=== PATIENT | female | born 1955 | race Caucasian/White ===

== ENCOUNTER → 2018-01-08 12:49 | Outpatient (CLI) | payer OTHER, SELFPAY ==
[2018-01-08 11:27] VITALS: BP 115/70; BMI 23.8
== END ==
PROVIDERS: Family Provider Family Medicine; PCP Family Medicine; Visit Provider Nurse Practitioner Women's Health
DX: N76.0 Acute vaginitis (principal)
CPT/HCPCS: 87070; 87205

== ENCOUNTER → 2018-01-10 15:12 | Outpatient (CLI) | payer OTHER, SELFPAY ==
[2018-01-08 11:27] VITALS: BP 115/70; BMI 23.8
--- NOTE | 2018-01-10 15:14 | US_ITS ---
STUDY: ULTRASOUND OF THE FEMALE PELVIS - COMPLETE REASON FOR EXAM: Female, 62 years old. Pelvic pain LMP: TECHNIQUE: Transabdominal and transvaginal TECHNICAL QUALITY: Adequate. COMPARISON: None. FINDINGS: The uterus is anteverted and is in a midline position. The uterus measures 5.6 x 3.5 x 2.5 cm. Normal uterine cervix. The endometrium measures 1.1 mm in thickness, and is hyperechoic. There is no demonstrated endometrial mass. There is no demonstrated myometrial mass. I.U.D. - The patient does not have an I.U.D. Ovaries are not visualized. There is no adnexal mass There is no fluid in the cul-de-sac. . US/Transvaginal Non- IMPRESSION: Nonvisualization of the ovaries. Otherwise unremarkable pelvic sonogram If concern for adnexal mass MRI recommended for further evaluation Electronically Signed: South Coreas MD at 19:54 EST , Service support ,
--- NOTE | 2018-01-10 15:14 | US_ITS ---
STUDY: ULTRASOUND OF THE FEMALE PELVIS - COMPLETE REASON FOR EXAM: Female, 62 years old. Pelvic pain LMP: TECHNIQUE: Transabdominal and transvaginal TECHNICAL QUALITY: Adequate. COMPARISON: None. FINDINGS: The uterus is anteverted and is in a midline position. The uterus measures 5.6 x 3.5 x 2.5 cm. Normal uterine cervix. The endometrium measures 1.1 mm in thickness, and is hyperechoic. There is no demonstrated endometrial mass. There is no demonstrated myometrial mass. I.U.D. - The patient does not have an I.U.D. Ovaries are not visualized. There is no adnexal mass There is no fluid in the cul-de-sac. . US/Pelvic (Non ) IMPRESSION: Nonvisualization of the ovaries. Otherwise unremarkable pelvic sonogram If concern for adnexal mass MRI recommended for further evaluation Electronically Signed: South Coreas MD at 19:54 EST , Service support ,
== END ==
PROVIDERS: Family Provider Family Medicine; PCP Family Medicine; Visit Provider Nurse Practitioner Women's Health
DX: R10.2 Pelvic and perineal pain (principal)
CPT/HCPCS: 76830; 76856

== ENCOUNTER 2018-04-02 03:33 | Emergency (ER) | payer OTHER, SELFPAY ==
[2018-04-02 03:34] VITALS: BP 124/64; PULSE 89; RESP 18; TEMP 36.5; O2SAT 98; BMI 23.6
[2018-04-02] MEDS: Ondansetron 4 MG/2 ML Vial IV (03:57)
[2018-04-02] MEDS: Dicyclomine 20 MG/2 ML Vial IM (03:59)
[2018-04-02] MEDS: 0.9% Normal Saline 1,000 ML 1000 ML IV (03:59)
[2018-04-02 04:03] LABS: Absolute Lymphocyte Count 0.31 X10^3/ul (0.83-4.51); Absolute Neutrophil Count 5.4 X10^3/uL (2.0-7.7); Eosinophil# 0.03 X10^3/uL; Eosinophils% 0.5 % (0-5); Hematocrit 44.6 % (37-47); Hemoglobin 14.9 g/dl (12.0-15.0); Lymphocyte # 0.31 X10^3/ul (4.0); Lymphocyte % 5.3 % (19-41); Mean Corp Hgb Conc 33.4 g/gl (32-36); Mean Corpuscular Hgb 31.5 pg (27.0-32.0); Mean Corpuscular Volume 94.3 fL (81-99); Mean Platelet Vol. 11.1 fl (6.2-12.0); Monocyte# 0.12 X10^3/uL; Monocyte% 2.1 % (0-10); Neutrophil # 5.38 X10^3/uL (2.7-7.7); Neutrophil % 91.9 % (47-70); Platelet Count 160 K/mm3 (150-450); RBC Distribution Width CV 12.7 % (11.6-14.6); RBC Distribution Width SD 43.5 fl (35.1-43.9); Red Blood Count 4.73 M/mm3 (4.2-5.4); White Blood Count 5.9 K/mm3 (4.4-11.0)
[2018-04-02 04:07] LABS: Differential Indicated SCAN CRITERIA MET; POSITIVE COUNT NO; POSITIVE DIFFERENTIAL YES; POSITIVE MORPHOLOGY NO
[2018-04-02 04:28] LABS: ALB/GLOB Ratio 1.1 RATIO (0.9-2.4); AST(SGOT) 25 U/L (15-37); Alanine Aminotransfer ALT/SGPT 18 U/L (13-56); Alkaline Phosphatase 74 U/L (45-117); Anion Gap 7 (5-15); BUN 21 mg/dL (7-18); BUN/Creat Ratio 28.3 RATIO (10-20); Calcium,Total 8.9 mg/dL (8.5-10.1); Chloride 108 mmol/L (98-107); Creatinine, Serum 0.74 mg/dL (0.55-1.02); EST Glomerular Filtration Rate 84 mL/min (>60); Est Glom Filt Rate - Afr Amer 102 mL/min (>60); Estimated Creatinine Clearance 73.79 ml/min; Globulin 3.6 g/dL (2.2-4.2); Glucose 125 mg/dL (74-106); Lipase 103 U/L (73-393); Potassium 3.8 mmol/L (3.5-5.1); Protein, Total 7.6 g/dL (6.4-8.2); Sodium Level 144 mmol/L (136-145)
--- NOTE | 2018-04-02 04:40 | ED.VISSUMM ---
- ER Visit Summary Date of Service: 04/02/18 Chief Complaint: Abdominal pain nausea and diarrhea History of Present Illness: The patient is a 62 F presenting for evaluation secondary to abdominal pain nausea and diarrhea. Patient states that she went out to dinner this evening with some friends. She had dinner at about 7:00, upon arriving home at 745 8:00 she had a sudden onset of profuse watery diarrhea, 10 episodes or more, crampy waxing and waning abdominal pain, nausea with no vomiting. Patient denies any presence of fevers. She denies any recent travel, antibiotic use, or admissions to the hospital. She states that her diarrhea is loose and watery nonbloody and nonbilious. Patient states that she had a salad with cheese, telling dressing, pizza with pepperoni and sausage, and ice cream for dinner. She states that she is unsure if anyone else in the dinner alliance party is having any similar symptoms. Physical Examination: Vital signs are within normal limits, patient is afebrile. General: Patient is well-nourished well-developed and in no acute distress. Head: Normocephalic, atraumatic Eyes: Pupils equal round and reactive bilaterally, extra occular motion intact bialterally no evidence of scleral icterus ENT: Moist mucous membranes Neck: Supple, no lymphadenopathy, no JVD, no meningismus CVS: Heart regular rate and rhythm, no murmurs, rubs or gallops, radial pulses 2+ bilaterally Resp: Respirations nondistressed, lung sounds clear bilaterally Abdomen: Soft, gastric tenderness to palpation no guarding no rebound, nondistended, no palpable masses, normal bowel sounds Back: Nontender Extremities: Nontender, atraumatic, active full range of motion, no peripheral edema Skin: warm, no rashes, no petechia Neuro: Alert and oriented x 4, CN 2-12 intact, no lateralizing neurological defecits Psyc: Normal affect Test Results: CBC is within normal limits except for a left shift, chemistry unremarkable except for chloride of 108, liver panel and lipase unremarkable. Emergency Department Course and Treatment: Patient presented with an acute onset of crampy abdominal pain and profuse diarrhea. She was given Bentyl a GI cocktail Zofran and a liter normal saline. Patient's workup does show evidence of a left shift, likely reactive to the patient's illness. At this point she does not have evidence that this is hepatitis A, this could be a episode of acute enteritis versus food borne illness. I do not believe that empiric antibiotics are indicated at this point. Patient will be sent home with a course of Bentyl and Zofran for symptomatic treatment. She was given signs and symptoms for which to return. She voiced understanding and the patient was discharged. Disposition: Discharge Impression: 1. Acute enteritis This note was generated with [employer] dictation software. It may contain incorrect words, spelling, and punctuation that were not noted in review of the chart prior to signing ED Disposition - Plan for ED Patient: Disposition: Home or Assisted Living Chief Complaint: Abd Pain Diagnosis: Enteritis Instructions: ED Gastroenteritis Non Infec Prescriptions: Ondansetron [Zofran Odt] 4 mg PO Q8H PRN PRN #10 tab PRN Reason: Nausea Dicyclomine HCl [Bentyl] 20 mg PO TIDAC #20 cap Referrals: Cristal Potts MD [Primary Care Provider] - 3-5 Days if not improving
--- NOTE | 2018-04-02 04:44 | ED.DCSUM_ITS ---
- ER Visit Summary Date of Service: 04/02/18 Chief Complaint: Abdominal pain nausea and diarrhea History of Present Illness: The patient is a 62 F presenting for evaluation secondary to abdominal pain nausea and diarrhea. Patient states that she went out to dinner this evening with some friends. She had dinner at about 7:00, upon arriving home at 745 8:00 she had a sudden onset of profuse watery diarrhea , 10 episodes or more, crampy waxing and waning abdominal pain, nausea with no vomiting. Patient denies any presence of fevers. She denies any recent travel , antibiotic use, or admissions to the hospital. She states that her diarrhea is loose and watery nonbloody and nonbilious. Patient states that she had a salad with cheese, telling dressing, pizza with pepperoni and sausage, and ice cream for dinner. She states that she is unsure if anyone else in the dinner alliance party is having any similar symptoms. Physical Examination: Vital signs are within normal limits, patient is afebrile. General: Patient is well-nourished well-developed and in no acute distress. Head: Normocephalic, atraumatic Eyes: Pupils equal round and reactive bilaterally, extra occular motion intact bialterally no evidence of scleral icterus ENT: Moist mucous membranes Neck: Supple, no lymphadenopathy, no JVD, no meningismus CVS: Heart regular rate and rhythm, no murmurs, rubs or gallops, radial pulses 2 + bilaterally Resp: Respirations nondistressed, lung sounds clear bilaterally Abdomen: Soft, gastric tenderness to palpation no guarding no rebound, nondistended, no palpable masses, normal bowel sounds Back: Nontender Extremities: Nontender, atraumatic, active full range of motion, no peripheral edema Skin: warm, no rashes, no petechia Neuro: Alert and oriented x 4, CN 2-12 intact, no lateralizing neurological defecits Psyc: Normal affect Test Results: CBC is within normal limits except for a left shift, chemistry unremarkable except for chloride of 108, liver panel and lipase unremarkable. Emergency Department Course and Treatment: Patient presented with an acute onset of crampy abdominal pain and profuse diarrhea. She was given Bentyl a GI cocktail Zofran and a liter normal saline. Patient's workup does show evidence of a left shift, likely reactive to the patient's illness. At this point she does not have evidence that this is hepatitis A, this could be a episode of acute enteritis versus food borne illness. I do not believe that empiric antibiotics are indicated at this point. Patient will be sent home with a course of Bentyl and Zofran for symptomatic treatment. She was given signs and symptoms for which to return. She voiced understanding and the patient was discharged. Disposition: Discharge Impression: 1. Acute enteritis This note was generated with [employer] dictation software. It may contain incorrect words, spelling, and punctuation that were not noted in review of the chart prior to signing ED Disposition - Plan for ED Patient: Disposition: Home or Assisted Living Chief Complaint: Abd Pain Diagnosis: Enteritis Instructions: ED Gastroenteritis Non Infec Prescriptions: Ondansetron [Zofran Odt] 4 mg PO Q8H PRN PRN #10 tab PRN Reason: Nausea Dicyclomine HCl [Bentyl] 20 mg PO TIDAC #20 cap Referrals: Cristal Potts MD [Primary Care Provider] - 3-5 Days if not improving
[2018-04-02 04:58] VITALS: BP 114/69; PULSE 82; RESP 16; O2SAT 99
[2018-04-02 05:02] LABS: Differential Comment SCANNED
== END 2018-04-02 04:59 | disposition home or self-care (01) ==
PROVIDERS: Emergency Provider Emergency Medicine; Family Provider Internal Medicine; PCP Internal Medicine
DX: K52.9 Noninfective gastroenteritis and colitis, unspecified (principal); Z79.82 Long term (current) use of aspirin; Z79.899 Other long term (current) drug therapy
CPT/HCPCS: 80053; 83690; 85025; 96361; 96372; 96374; 99283; J7030; A4216; J2405

== ENCOUNTER → 2018-05-01 08:53 | Outpatient (CLI) | payer OTHER, SELFPAY ==
--- NOTE | 2018-05-01 08:55 | BI_ITS ---
MAMMOGRAPHY - BILATERAL SCREENING REASON FOR EXAM: Female, 62 years old. Routine annual screening examination. PERTINENT HISTORY: Non-contributory. TECHNIQUE: Digital bilateral breast katarina (3D mammographic acquisition) in the CC and MLO projections. 2-D mediolateral oblique (MLO) and craniocaudad (CC) views of both breasts were obtained. CAD: Full Field Digital Mammography with Computer Added Detection was performed. COMPARISON: Comparison is made with prior examination dated April 30, 2017 and April 25, 2016. FINDINGS: Breast Composition: The breasts are heterogeneously dense, which may obscure small masses. There are no dominant masses or suspicious calcifications. No other significant abnormalities are identified. There has been no significant change since the prior study. BI/SCREENING MAMM (CAD), BILAT IMPRESSION: Stable bilateral screening mammogram. Yearly follow-up mammogram recommended. (A) ASSESSMENT CATEGORY: BIRADS Category 1: Negative. A letter regarding these results will be sent to the patient by the facility within 30 days. Approximately 10% of breast cancers are not detected by mammography. A normal mammogram should not delay biopsy of a clinically suspicious abnormality. [id number] Electronically Signed: Carson Garcia MD at 10:26 EDT Tel [phone], Service support ,
== END ==
PROVIDERS: Family Provider Internal Medicine; PCP Internal Medicine; Visit Provider Internal Medicine
DX: Z12.31 Encounter for screening mammogram for malignant neoplasm of breast (principal)
CPT/HCPCS: 77063; 77067

== ENCOUNTER 2018-05-25 11:00 | Emergency (ER) | payer OTHER, SELFPAY ==
[2018-05-25 11:00] VITALS: BP 147/82; PULSE 75; RESP 17; TEMP 36.8; O2SAT 95; BMI 23.3
--- NOTE | 2018-05-25 11:42 | ED.VISSUMM ---
- ER Visit Summary Date of Service: 05/25/18 Chief Complaint: [] Left shoulder pain for a few months diagnosed with calcific tendinitis History of Present Illness: The patient is a 62 F [] has that diagnosis based on x-ray findings evaluation by her physicians she basically indicates her shoulder is quite sore with any type of range of motion she is undergoing physical therapy and reports that it actually made things worse so they modified her physical therapy today she woke up again with difficulty moving the shoulder to any direction she has had no trauma no fever no cough no numbness weakness or paresthesias, she has no other complaints she assures me this is consistent with what she has been going through for months and nothing new she had no pain relief at home and she presents for that main issue Physical Examination: [] she is resting in the bed as long as she does not move the shoulder she has no complaints her vital signs are within normal range she clearly has discomfort with any type of range of motion of the left shoulder her head neck chest exam unremarkable lower extremity right upper extremity unremarkable left upper extremity she prefers to keep the shoulder ADD adducted she has almost no pain with palpation of the shoulder however any type of range of motion causes her to have pain in her range of motion to all modalities is restricted the arm forearm elbow wrist and hand are unremarkable good sensation cap refill normal hand function, there is no bruising or warmth to the shoulder or signs of trauma or infection Test Results: [] Emergency Department Course and Treatment: [] Long conversation with her family given all the above she agrees that there is no real indication for x-ray or other diagnostics management she simply needs pain relief, she is provided with morphine and Toradol IM she is discharged on Naprosyn Zofran [place] No. 10 to use as needed rescue medicine she is referred to orthopedics and she will also follow-up with her physicians and other care providers Treatment Plan: [] Disposition: [] Home stable Impression: [] Left shoulder pain history of calcific tendinitis This note was generated with [employer] dictation software. It may contain incorrect words, spelling, and punctuation that were not noted in review of the chart prior to signing ED Disposition - Plan for ED Patient: Chief Complaint: Upper Extremity Injury Referrals: Cristal Potts MD [Primary Care Provider] -
--- NOTE | 2018-05-25 11:45 | ED.DEP ---
ED Disposition - Plan for ED Patient: Chief Complaint: Upper Extremity Injury Instructions: ED Tendinitis Rotator Cuff Prescriptions: Hydrocodone Bitart/Apap 5-325 [[place] 5MG-325MG] 1 tab PO Q4H PRN PRN 2 Days #10 tab PRN Reason: Pain Ondansetron [Zofran Odt] 4 mg PO Q8H PRN PRN #10 tab PRN Reason: Nausea Naproxen [Naprosyn] 500 mg PO BID PRN #20 tab Referrals: Cristal Potts MD [Primary Care Provider] - Benjie Lerma DO [STAFF PHYSICIAN] -
[2018-05-25] MEDS: Ondansetron ODT 4 MG Tablet PO (11:55)
[2018-05-25] MEDS: Ketorolac 60 MG/2 ML Vial IM (11:55)
[2018-05-25] MEDS: morphine 8 MG/ML Syringe SC (11:55)
[2018-05-25 12:00] VITALS: BP 139/79; PULSE 69; RESP 18; O2SAT 96
== END 2018-05-25 12:04 | disposition home or self-care (01) ==
PROVIDERS: Emergency Provider Emergency Medicine; Family Provider Internal Medicine; PCP Internal Medicine
DX: M75.32 Calcific tendinitis of left shoulder (principal); Z79.82 Long term (current) use of aspirin
CPT/HCPCS: 96372; 99283

== ENCOUNTER → 2019-05-08 13:40 | Outpatient (CLI) | payer OTHER, SELFPAY ==
[2019-02-02 09:45] VITALS: BMI 23.8
--- NOTE | 2019-05-08 13:53 | BI_ITS ---
MAMMOGRAPHY - BILATERAL SCREENING REASON FOR EXAM: Female, 63 years old. Routine annual screening examination. PERTINENT HISTORY: Non-contributory. TECHNIQUE: Digital bilateral breast dat (3D mammographic acquisition) in the CC and MLO projections. 2-D mediolateral oblique (MLO) and craniocaudad (CC) views of both breasts were obtained. CAD: Full Field Digital Mammography with Computer Added Detection was performed. COMPARISON: Comparison is made with prior study dated May 01, 2018 and April 30, 2017. FINDINGS: Breast Composition: The breasts are heterogeneously dense, which may obscure small masses. There are no dominant masses or suspicious calcifications. No other significant abnormalities are identified. There has been no significant change since the prior study. BI/SCREEN MAMM (CAD) W/DAT BILAT IMPRESSION: Stable bilateral screening mammogram. Yearly follow-up mammogram recommended. (A) ASSESSMENT CATEGORY: BIRADS Category 1: Negative. A letter regarding these results will be sent to the patient by the facility within 30 days. Approximately 10% of breast cancers are not detected by mammography. A normal mammogram should not delay biopsy of a clinically suspicious abnormality. [id number] Electronically Signed: Carson Garcia, at 15:15 EDT , Service support ,
== END ==
PROVIDERS: Family Provider Internal Medicine; PCP Internal Medicine; Referring Provider Nurse Practitioner Women's Health; Visit Provider Nurse Practitioner Women's Health
DX: Z12.31 Encounter for screening mammogram for malignant neoplasm of breast (principal)
CPT/HCPCS: 77063; 77067

== ENCOUNTER → 2019-05-08 15:43 | Outpatient (CLI) | payer OTHER, SELFPAY ==
[2019-02-02 09:45] VITALS: BMI 23.8
== END ==
PROVIDERS: Family Provider Internal Medicine; PCP Internal Medicine; Referring Provider Otolaryngology; Visit Provider Otolaryngology
DX: J02.9 Acute pharyngitis, unspecified (principal)
CPT/HCPCS: 87070

== ENCOUNTER → 2019-11-03 14:07 | Outpatient (CLI) | payer OTHER, SELFPAY ==
[2019-11-03 09:16] VITALS: BMI 23.8
== END ==
PROVIDERS: Family Provider Internal Medicine; PCP Internal Medicine; Visit Provider Nurse Practitioner Women's Health
DX: M54.5 Low back pain (principal); N89.8 Other specified noninflammatory disorders of vagina
CPT/HCPCS: 87070; 87086; 87205

== ENCOUNTER 2019-12-27 12:46 | Emergency (ER) | payer OTHER, SELFPAY ==
[2019-11-03 09:16] VITALS: BMI 23.8
[2019-12-27 12:47] VITALS: BP 149/90; PULSE 61; RESP 16; TEMP 36.4; O2SAT 100; BMI 23.8
--- NOTE | 2019-12-27 13:02 | RAD_ITS ---
STUDY: X-RAY - LEFT WRIST REASON FOR EXAM: Female, 64 years old. PAIN OVER NAVICULAR AREA AFTER LOUD CRACK TECHNIQUE: 4 view(s) of the wrist were obtained. COMPARISON: None. FINDINGS: Normal visualized distal radius and ulna. Normal radiocarpal articulation. Normal distal radioulnar articulation. Normal carpal bones. Normal carpal articulations. Normal carpometacarpal articulation of the thumb. Normal second through fifth carpometacarpal articulations. Normal visualized metacarpal bones. The soft tissue structures are unremarkable. RAD/Wrist min 3 Views IMPRESSION: Normal x-ray examination of the wrist. Electronically Signed: Denzel Rodriguez DO at 14:12 EST Tel , Service support ,
--- NOTE | 2019-12-27 13:02 | ED.DCSUM_ITS ---
History of Present Illness Chief Complaint: Upper Extremity Injury Detail of Chief Complaint: Left wrist pain Informant: Patient Onset: Days Context: Sudden Onset Current Severity: Mild Maximum Severity: Moderate Narrative: Patient presents with pain to her left wrist that started 2 days ago. She states when she went to bed Ag night she used her left hand to pull her comforter and sheets back, feeling a sharp pop at the base of her left thumb. Patient is had continued pain to that area, worse with certain movements. This morning when she woke up she states her fingers were cold. After making a fist a few times temperature returned to normal. She denies having numbness in her hands. She does report some intermittent numbness in her forearm. She is rig ht-hand dominant. Past Medical History - Allergies and Home Meds Allergies/Adverse Reactions: Allergies Penicillins Allergy (Verified 12/27/19 12:47) Unknown Primary Care Physician: Cristal Potts MD [Primary Care Provider] - Past Medical History: None Lives: Spouse/ Significant Other Smoking Status: Never smoker Review of Systems General: Denies: Chills, Fever Eyes: Denies: Visual changes - bilaterally ENT: Denies: Bilateral ear pain Cardiovascular: Denies: Chest pain Respiratory: Denies: Dyspnea, Cough Gastrointestinal: Denies: Abdominal pain, Nausea, Vomiting, Diarrhea Genitourinary: Denies: Dysuria Musculoskeletal: Reports: Extremity Pain. Denies: Myalgias, Arthralgias, Swelling Skin: Denies: Rash Neurological: Reports: Parasthesia Allergy: Denies: Uticaria Physical Exam Vital Signs/Narrative: Vital Signs Temp Pulse Resp BP Pulse Ox 12/27/19 12:47 97.6 F L 61 16 149/90 H 100 Inital Vital Signs reviewed: Yes General: Well nourished, Well developed Head: Normocephalic ENT: Moist mucous membranes Neck: Supple Cardiovascular: Regular rate, Regular rhythm Respiratory: No distress, CTA bilaterally Abdomen: Soft, Nontender Extremities: - - Mild tenderness at the base of the left thumb. Pain is worse with abduction of her left thumb. Normal cap refill distally and sensation. Skin: Normal color Neurological: Alert, Oriented x3, Normal Strength, Normal Sensation Diagnostic/Tx/Re-eval Left wrist x-rays per my review reveal no acute fracture. - Medical Decision Making Patient be placed in a thumb spica splint. She will use anti-inflammatories at home for pain. She will follow primary care physician if not improving in the next 5 to 7 days. ED Disposition - Plan for ED Patient: Disposition: Home or Assisted Living Diagnosis: Left wrist sprain Instructions: Wrist Sprain Referrals: Cristal Potts MD [Primary Care Provider] - 1 Week if not improving
== END 2019-12-27 13:40 | disposition home or self-care (01) ==
PROVIDERS: Emergency Provider Emergency Medicine; PCP Internal Medicine
DX: S63.502A Unspecified sprain of left wrist, initial encounter (principal); X50.9XXA Other and unspecified overexertion or strenuous movements or postures, initial encounter; Y93.9 Activity, unspecified; Y92.9 Unspecified place or not applicable; Y99.9 Unspecified external cause status; Z79.82 Long term (current) use of aspirin; Z79.899 Other long term (current) drug therapy; Z88.0 Allergy status to penicillin
CPT/HCPCS: 73110; 99283

== ENCOUNTER 2020-04-17 08:34 | Emergency (ER) | payer OTHER, SELFPAY ==
[2020-04-17 08:34] VITALS: BP 167/85; PULSE 59; RESP 18; TEMP 36.4; O2SAT 100; BMI 25.7
--- NOTE | 2020-04-17 09:17 | ED.VISSUMM ---
- ER Visit Summary Date of Service: 04/17/20 Chief Complaint: Dizziness History of Present Illness: The patient is a 64 F who presents with dizziness that began this morning. Patient states she got up to go to the bathroom at 0600 this morning and felt like the room was spinning. Patient states she was able to ambulate to the bathroom using a cane. Patient states nothing makes the dizziness better. Patient states this is worse when she sat up. Patient does admit to some tinnitus. Patient states it feels like there is a buzzing in her ears. Patient states that she feels like her brain is spinning. Patient states she has a history of vertigo. Patient states she tried to take Dramamine this morning with no improvement. Patient admits to some nausea and vomiting today. Physical Examination: Vital signs are stable. Patient is afebrile. Patient is in no acute distress. Oral mucosa is pink and moist. Neck is supple. Trachea is midline. There is no JVD noted. Heart was regular rate and rhythm. Lungs are clear and equal bilaterally. Abdomen is soft. Bowel sounds are normal. There is no tenderness. There is no rebound or guarding noted. Skin is warm dry. Cranial nerves II through XII are intact. There are no focal motor or sensory deficits noted. Extremities are intact. There is no calf tenderness or edema. Test Results: CBC and comprehensive metabolic profile were obtained and were within normal limits. Emergency Department Course and Treatment: Patient was given a dose of oral Valium here. Patient is feeling better after this. Patient was given a prescription for Valium. Patient was instructed to follow-up with her primary care physician in 5 to 7 days. Patient understood and was agreeable with the plan. All questions were answered. Disposition: Discharge home Impression: Vertigo This note was generated with [employer] dictation software. It may contain incorrect words, spelling, and punctuation that were not noted in review of the chart prior to signing ED Disposition - Plan for ED Patient: Disposition: Home or Assisted Living Diagnosis: Vertigo Instructions: ED Vertigo Unspecified Prescriptions: Diazepam [Valium] 2 mg PO TID PRN PRN #10 tab PRN Reason: Vertigo Prescription Printed Referrals: Cristal Potts MD [Primary Care Provider] - 3-5 Days
[2020-04-17] MEDS: diazePAM 5 MG Tablet 2.5 MG PO (09:24)
[2020-04-17] MEDS: 0.9% Normal Saline 1,000 ML 1000 ML IV (09:24)
[2020-04-17 09:30] LABS: Absolute Lymphocyte Count 0.72 X10^3/uL (0.83-4.51); Absolute Neutrophil Count 4.8 X10^3/uL (2.0-7.7); Basophil# 0.02 X10^3/uL; Basophil% 0.3 % (0-1); Eosinophil# 0.03 X10^3/uL; Eosinophils% 0.5 % (0-5); Hematocrit 43.4 % (37-47); Hemoglobin 14.5 g/dL (12.0-15.0); Lymphocyte # 0.72 X10^3/ul (4.0); Lymphocyte % 12.4 % (19-41); Mean Corp Hgb Conc 33.4 g/dL (32-36); Mean Corpuscular Hgb 31.6 pg (27.0-32.0); Mean Corpuscular Volume 94.6 fL (81-99); Mean Platelet Vol. 11.4 fl (6.2-12.0); Monocyte# 0.25 X10^3/uL; Monocyte% 4.3 % (0-10); NRBC Flagged by Analyzer 0 % (0-5); Neutrophil # 4.75 X10^3/uL (2.7-7.7); Neutrophil % 82.2 % (47-70); Platelet Count 160 K/mm3 (150-450); RBC Distribution Width CV 12.3 % (11.6-14.6); RBC Distribution Width SD 42.5 fl (35.1-43.9); Red Blood Count 4.59 M/mm3 (4.2-5.4); White Blood Count 5.8 K/mm3 (4.4-11.0)
[2020-04-17 09:49] LABS: ALB/GLOB Ratio 1.1 RATIO (0.9-2.4); AST(SGOT) 37 U/L (15-37); Alanine Aminotransfer ALT/SGPT 18 U/L (13-56); Albumin, Serum 3.7 g/dL (3.2-5.0); Alkaline Phosphatase 78 U/L (45-117); Anion Gap 5 (5-15); BUN 15 mg/dL (7-18); BUN/Creat Ratio 22.8 RATIO (10-20); Calcium,Total 8.9 mg/dL (8.5-10.1); Chloride 109 mmol/L (98-107); Creatinine, Serum 0.66 mg/dL (0.55-1.02); EST Glomerular Filtration Rate 96 mL/min (>60); Est Glom Filt Rate - Afr Amer 116 mL/min (>60); Estimated Creatinine Clearance 80.61 ml/min; Globulin 3.5 g/dL (2.2-4.2); Glucose 101 mg/dL (74-106); Potassium 4.5 mmol/L (3.5-5.1); Protein, Total 7.2 g/dL (6.4-8.2); Sodium Level 140 mmol/L (136-145)
[2020-04-17 10:35] VITALS: BP 140/80; PULSE 60; RESP 18; O2SAT 97
== END 2020-04-17 11:44 | disposition home or self-care (01) ==
PROVIDERS: Emergency Provider Emergency Medicine; PCP Internal Medicine
DX: R42 Dizziness and giddiness (principal); H93.19 Tinnitus, unspecified ear; R11.2 Nausea with vomiting, unspecified; R51 Headache; Z79.82 Long term (current) use of aspirin; Z79.899 Other long term (current) drug therapy
CPT/HCPCS: 80053; 85025; 96360; 99285; J7030; A4216

== ENCOUNTER → 2020-05-23 14:13 | Outpatient (CLI) | payer OTHER, SELFPAY ==
--- NOTE | 2020-05-23 14:15 | BI_ITS ---
MAMMOGRAPHY - BILATERAL SCREENING 3-D TOMOSYNTHESIS REASON FOR EXAM: Female, 64 years old. Routine screening PERTINENT HISTORY: NO FAM HX -- NO CHILDREN -- CURR HRT X 1 YR -- NO SX. TECHNIQUE: 2-D mammograms and 3-D Tomosynthesis of the breast (s) were performed. CAD was performed. COMPARISON: 05/08/2019 FINDINGS: The breast composition is heterogeneously dense that can obscure small breast masses. Scattered benign calcifications are seen. No dense spiculated masses or suspicious microcalcifications are identified. No architectural distortion is identified. There is no skin thickening or retraction. There has been no significant change since the prior study. BI/SCREEN MAMM (CAD) W/DAT BILAT IMPRESSION: No mammographic signs of malignancy. Routine yearly mammograms recommended. ASSESSMENT CATEGORY: BIRADS Category 2: Benign. A letter regarding these results will be sent to the patient by the facility within 30 days. FOLLOW UP RECOMMENDATION: Yearly follow up mammogram recommended. (A) Approximately 10% of breast cancers are not detected by mammography. A normal mammogram should not delay biopsy of a clinically suspicious abnormality. Electronically Signed: Jeff Puga MD at 15:40 EDT , Service support ,
== END ==
PROVIDERS: PCP Internal Medicine; Referring Provider Nurse Practitioner Women's Health; Visit Provider Nurse Practitioner Women's Health
DX: Z12.31 Encounter for screening mammogram for malignant neoplasm of breast (principal)
CPT/HCPCS: 77063; 77067

== ENCOUNTER → 2020-07-19 | Outpatient (CLI) | payer OTHER, SELFPAY ==
[2020-07-19 14:07] VITALS: BMI 25.7
[2020-07-22 16:34] LABS: HPV APTIMA, High Risk Negative (Negative)
== END | disposition home or self-care (01) ==
LOC: LABSPEC 16:58
PROVIDERS: PCP Internal Medicine; Referring Provider Nurse Practitioner Women's Health; Visit Provider Nurse Practitioner Women's Health
DX: Z12.4 Encounter for screening for malignant neoplasm of cervix (principal)
CPT/HCPCS: 87624; 88175; G0145

== ENCOUNTER → 2021-05-24 10:06 | Outpatient (CLI) | payer MEDICARE, OTHER, SELFPAY ==
[2020-07-19 14:07] VITALS: BMI 25.7
--- NOTE | 2021-05-24 10:10 | BI_ITS ---
MAMMOGRAPHY - BILATERAL SCREENING 3-D TOMOSYNTHESIS REASON FOR EXAM: Female, 65 years old. screening mammogram PERTINENT HISTORY: No significant family history. TECHNIQUE: 2-D mammograms and 3-D Tomosynthesis of the breast (s) were performed. CAD was performed. COMPARISON: 05/23/2020 FINDINGS: The breast composition is heterogeneous fibroglandular tissue No dense spiculated masses or suspicious microcalcifications are identified. No architectural distortion is identified. There is no skin thickening or nipple retraction. There has been no significant change since the prior study of 05/23/2020 BI/SCRN MAMM (CAD)W/DAT BILAT IMPRESSION: No mammographic signs of malignancy. Routine yearly mammograms recommended. ASSESSMENT CATEGORY: BIRADS Category 1: Negative. A letter regarding these results will be sent to the patient by the facility within 30 days. FOLLOW UP RECOMMENDATION: Yearly follow up mammogram recommended. (A) Approximately 10% of breast cancers are not detected by mammography. A normal mammogram should not delay biopsy of a clinically suspicious abnormality. Electronically Signed: Christopher Penaloza, at 15:23 EDT Tel , Service support ,
== END ==
PROVIDERS: PCP Internal Medicine; Referring Provider Nurse Practitioner Women's Health; Visit Provider Nurse Practitioner Women's Health
DX: Z12.31 Encounter for screening mammogram for malignant neoplasm of breast (principal)
CPT/HCPCS: 77063; 77067

== ENCOUNTER → 2021-08-04 10:55 | Outpatient (CLI) | payer MEDICARE, OTHER, SELFPAY ==
[2020-07-19 14:07] VITALS: BMI 25.7
--- NOTE | 2021-08-04 11:11 | EKG12_ITS ---
Test Reason : PRE OP Blood Pressure : / mmHG Vent. Rate : 056 BPM Atrial Rate : 056 BPM P-R Int : 148 ms QRS Dur : 076 ms QT Int : 456 ms P-R-T Axes : 059 010 054 degrees QTc Int : 440 ms Sinus bradycardia Otherwise normal ECG Confirmed by ANDREW WEEKS, MACHELLE ([id number]), production editor ALANNA PALUMBO ([id number]) on 08/08/2021 8:27:00 AM Referred By: Damian Rodas Confirmed By:FIDEL MORALES MD
[2021-08-04 11:27] LABS: Hematocrit 38.6 % (37-47); Hemoglobin 12.8 g/dL (12.0-15.0); Mean Corp Hgb Conc 33.2 g/dL (32-36); Mean Corpuscular Hgb 32.6 pg (27.0-32.0); Mean Corpuscular Volume 98.2 fL (81-99); Mean Platelet Vol. 10.6 fl (6.2-12.0); Platelet Count 168 K/mm3 (150-450); RBC Distribution Width CV 11.9 % (11.6-14.6); Red Blood Count 3.93 M/mm3 (4.2-5.4); White Blood Count 3.6 K/mm3 (4.4-11.0)
[2021-08-04 11:54] LABS: Anion Gap 4 (5-15); BUN 14 mg/dL (7-18); BUN/Creat Ratio 21.6 RATIO (10-20); Calcium,Total 8.8 mg/dL (8.5-10.1); Chloride 104 mmol/L (98-107); Creatinine, Serum 0.65 mg/dL (0.55-1.02); EST Glomerular Filtration Rate 97 mL/min (>60); Est Glom Filt Rate - Afr Amer 118 mL/min (>60); Glucose 93 mg/dL (74-106); Potassium 4.1 mmol/L (3.5-5.1); Sodium Level 140 mmol/L (136-145)
== END ==
PROVIDERS: PCP Internal Medicine; Referring Provider Physician Assistant; Visit Provider Physician Assistant
DX: Z01.818 Encounter for other preprocedural examination (principal); Z01.810 Encounter for preprocedural cardiovascular examination; R00.1 Bradycardia, unspecified
CPT/HCPCS: 36415; 80048; 85027; 93005

== ENCOUNTER → 2022-05-28 | Outpatient (CLI) | payer MEDICARE, OTHER, SELFPAY ==
--- NOTE | 2022-05-28 08:44 | BI_ITS ---
MAMMOGRAPHY - BILATERAL SCREENING REASON FOR EXAM: Female, 66 years old. Routine annual screening examination. PERTINENT HISTORY: Non-contributory. TECHNIQUE: Digital bilateral breast dat (3D mammographic acquisition) in the CC and MLO projections. 2-D mediolateral oblique (MLO) and craniocaudad (CC) views of both breasts were obtained. CAD: Full Field Digital Mammography with Computer Added Detection was performed. COMPARISON: Comparison is made with prior study dated 05/24/2021 and 05/23/2020. FINDINGS: Breast Composition: The breasts are heterogeneously dense, which may obscure small masses. There are no dominant masses or suspicious calcifications. No other significant abnormalities are identified. There has been no significant change since the prior study. BI/SCRN MAMM (CAD)W/DAT BILAT IMPRESSION: Stable bilateral screening mammogram. Yearly follow-up mammogram recommended. (A) ASSESSMENT CATEGORY: BIRADS Category 1: Negative. A letter regarding these results will be sent to the patient by the facility within 30 days. Approximately 10% of breast cancers are not detected by mammography. A normal mammogram should not delay biopsy of a clinically suspicious abnormality. [id number] Electronically Signed: Carson Garcia MD at 9:41 EDT ,
== END | disposition home or self-care (01) ==
LOC: OPBI 08:43
PROVIDERS: PCP Internal Medicine; Visit Provider Nurse Practitioner Women's Health
DX: Z12.31 Encounter for screening mammogram for malignant neoplasm of breast (principal)
CPT/HCPCS: 77063; 77067

== ENCOUNTER → 2023-06-06 | Outpatient (CLI) | payer MEDICARE, OTHER, SELFPAY ==
--- NOTE | 2023-06-06 09:36 | BI_ITS ---
MAMMOGRAPHY - BILATERAL SCREENING REASON FOR EXAM: Female, 67 years old. Routine annual screening examination. PERTINENT HISTORY: Non-contributory. TECHNIQUE: Digital bilateral breast dat (3D mammographic acquisition) in the CC and MLO projections. 2-D mediolateral oblique (MLO) and craniocaudad (CC) views of both breasts were obtained. CAD: Full Field Digital Mammography with Computer Added Detection was performed. COMPARISON: Comparison is made with prior study dated May 28, 2022 and May 24, 2021. FINDINGS: Breast Composition: The breasts are heterogeneously dense, which may obscure small masses. There are no dominant masses or suspicious calcifications. Stable benign-appearing bilateral axillary lymph nodes. No other significant abnormalities are identified. There has been no significant change since the prior study. BI/SCRN MAMM (CAD)W/DAT BILAT IMPRESSION: Stable bilateral screening mammogram. Yearly follow-up mammogram recommended. (A) ASSESSMENT CATEGORY: BIRADS Category 2: Benign. A letter regarding these results will be sent to the patient by the facility within 30 days. Approximately 10% of breast cancers are not detected by mammography. A normal mammogram should not delay biopsy of a clinically suspicious abnormality. [id number] Electronically Signed: Carson Garcia MD at 10:29 EDT ,
== END | disposition home or self-care (01) ==
PROVIDERS: Referring Provider Nurse Practitioner Women's Health; Visit Provider Nurse Practitioner Women's Health
DX: Z12.31 Encounter for screening mammogram for malignant neoplasm of breast (principal)
CPT/HCPCS: 77063; 77067

== ENCOUNTER 2023-08-30 07:13 | Day surgery (SDC) | payer MEDICARE, OTHER, SELFPAY ==
[2023-08-30] VITALS (8 sets, daily range): BP systolic 100–142; BP diastolic 52–70; PULSE 53–70; RESP 16; TEMP 36.2–36.9; O2SAT 98–100; BMI 22.4
[2023-08-30] MEDS: Lactated Ringers 250 ML 999 ML IV (07:40)
--- NOTE | 2023-08-30 07:54 | H&P.OPEN ---
[facility] - General General Date of Service: 08/30/23 HPI Narrative LAWANDA ARREGUIN, is a 68 F who presents for screening colonoscopy. Patient previously had a colonoscopy with Dr. Hogue in 2012. Patient did get a Cologuard in 2019?which was negative?as patient's father colectomy- question whether this was due to cancer as he did previously have bladder as well as prostate cancer. However this may have been questionable diverticular bleed or metastatic cancer from the bladder, either way patient was in his 80s at the time. Patient denies any chronic abdominal pain/nausea/vomiting/reflux. Patient has bowel movements daily denies any blood. [facility] Medical History (Updated 08/30/23 @ 07:[address] Chloe Shannon MD) Alcohol use Anxiety Arthritis Back pain Family history of colon cancer Intermittent palpitations Left rotator cuff tear Non-smoker Post-menopausal Syncope Wears glasses Home Medications multivitamin,[id number] (Complete Multivitamin tablet) 1 tab PO QDAY 01/08/18 [History Last Taken Unknown] calcium carbonate 500 mg-vitamin D3 15 mcg (600 unit) tablet 1 tab PO DAILY 04/02/18 [History Last Taken Unknown] escitalopram oxalate 10 mg tablet (Lexapro) 10 mg PO DAILY 07/25/21 [History Last Taken Unknown] propranolol 10 mg tablet 10 mg PO TID 07/25/21 [History Last Taken Unknown] trazodone 50 mg tablet 50 mg PO DAILY 07/25/21 [History Last Taken Unknown] cholecalciferol (vitamin D3) 50 mcg (2,000 unit) capsule 50 mcg PO DAILY 07/26/22 [History Last Taken Unknown] ascorbate calcium (vitamin C) 500 mg tablet 500 mg PO DAILY 07/02/23 [History Last Taken Unknown] zinc sulfate 50 mg zinc (220 mg) capsule 50 mg PO DAILY 07/02/23 [History Last Taken Unknown] conjugated estrogens 0.625 mg/gram vaginal cream (Premarin) See Rx Instructions .Route .COMPLEX #30 grams 08/15/23 [Rx Last Taken Unknown] Allergy/AdvReac Type Severity Reaction Status Date / Time acetaminophen Allergy Intermediate hallucinati Verified 08/27/23 15:26 ons Penicillins Allergy Unknown Verified 08/27/23 15:26 Family History (Updated 07/02/23 @ 15:54 by Maris Wasserman) Father Cancer bladder colon skin Hypertension Anal cancer Diverticulitis History of colectomy Sister Cancer kidney, pituitary gland Diabetes Grandfather Heart disease Surgical History blocked lymphnode from arm cyst removed from breast History of appendectomy Hx of colonoscopy left eardrum replaced salivary gland removal Social History Smoking Status: Never smoker alcohol intake: current details: social substance use type: does not use caffeine: Yes what type of physical activity do you participate in: walking frequency: daily seatbelt use: always do you feel safe at home: Yes additional social history: - Retired Past Medical/Surgical History Planned Operation Planned Operative Procedure/s: COLONOSCOPY-OA Previous Hospitalizations/Surgeries HX Hospitalizations: No Any Problems With Anesthesia: No You/Your Family Experience Fever (Hyperthermia) With Anes: No Cholinesterase deficiency: No Cardiovascular Hx of Irregular Heartbeat and/or Afib: No Hx Heart Attack: No Hx Congestive Heart Failure: No Hx Hypertension: No Hx Internal Defibrillator: No Hx Pacemaker: No Respiratory Hx Chronic Obstructive Pulmonary Disease (COPD): No Hx Asthma: No Hx Emphysema: No Hx Sleep Apnea: No Hx Respiratory Tract Infection/Cold (presently): No Do You Snore Loudly (louder than talking or can be heard): No Do You Often Feel Tired/ Fatigued/ Sleepy Dring Daytime?: No Has Anyone Observed You Stop Breathing During Sleep?: No Result (for STOP score): Negative Smoking Status: Never smoker Gastrointestinal Hx Gastroesophageal Reflux: No Hx Ulcer: No Neurological Hx Seizures: No Hx Multiple Sclerosis: No Hx Parkinson's Disease: No Hx Head/Neck Injury: Yes Hx Headaches: No Hx Back Injury/Pain: No Does patient have nerve stimulator: No Reproduction : No Psycho/Social Hx Anxiety: No Hx Depression: No Miscellaneous Recent Exposure to Contagious Disease: No Allergies acetaminophen Allergy (Intermediate, Verified 08/27/23 15:26) hallucinations Penicillins Allergy (Verified 08/27/23 15:26) Unknown Childhood Discharge Is Pt Admitted From a Retirement, or a [place] [facility]: No After D/C, Where Do you Plan to Go: Return Home Vital Signs Vital Signs Vital Signs: 08/30/23 07:39 08/30/23 07:39 Temperature 98.4 F Temperature Source Temporal Pulse Rate 53 L Respiratory Rate 16 Respiratory Pattern Normal Blood Pressure 129/69 H Blood Pressure Mean 89 Blood Pressure Source Monitor Blood Pressure Position Semi-Fowlers Blood Pressure Location Left Arm Pulse Ox 99 Oxygen Delivery Method Room Air Weight Weight: 138 lb 14.259 oz Body Mass Index (BMI) 22.4 Physical Exam Const alert, oriented x3 and no apparent distress HEENT normocephalic and head/scalp atraumatic Resp normal respiratory effort Cardio regular rate GI soft to palpation and non-tender; Negative for non-distended Palpation: Negative for guarding Extremity no clubbing, cyanosis or edema Neuro CN's II-XII intact bilaterally Psych mental status grossly normal Assessment & Plan Assessment/Plan (1) Encounter for screening for malignant neoplasm of colon: Surgery Risks - Colonoscopy I discussed with the patient the risks of the procedure: Yes Risks Include but are not Limited To: Risks include but are not limited to: Bleeding, perforation requiring further surgery, inability to complete colonoscopy requiring barium enema.
--- NOTE | 2023-08-30 09:24 | OP.COLON_ITS ---
Patient Name: Suzanna Sidhu Procedure Date: 08/30/2023 8:48 AM Date of : 1955 Age: 68 Procedure: Colonoscopy Indications: Screening for colorectal malignant neoplasm Providers: Chloe Shannon MD Referring MD: Roxanne Primary Care Physician Medicines: Monitored Anesthesia Care Patient Profile: This is a 68 year old female. Last Colonoscopy: 10 years ago. Complications: No immediate complications. Procedure: Pre-Anesthesia Assessment: - Prior to the procedure, a History and Physical was performed, and patient medications and allergies were reviewed. The patient's tolerance of previous anesthesia was also reviewed. The risks and benefits of the procedure and the sedation options and risks were discussed with the patient. All questions were answered, and informed consent was obtained. Prior Anticoagulants: The patient has taken no anticoagulant or antiplatelet agents. ASA Grade Assessment: Per anesthesia. After reviewing the risks and benefits, the patient was deemed in satisfactory condition to undergo the procedure. After I obtained informed consent, the scope was passed under direct vision. Throughout the procedure, the patient's blood pressure, pulse, and oxygen saturations were monitored continuously. The Colonoscope was introduced through the anus and advanced to the cecum, identified by appendiceal orifice and ileocecal valve. The colonoscopy was performed without difficulty. The patient tolerated the procedure well. The quality of the bowel preparation was good. Scope In: 9:01:18 AM Scope Withdrawal Time 0 hours 9 minutes 57 seconds Scope Out: 9:18:10 AM Total Procedure Duration Time 0 hours 16 minutes 52 seconds Findings: The perianal and digital rectal examinations were normal. The entire examined colon appeared normal on direct and retroflexion views. Impression: - The entire examined colon is normal on direct and retroflexion views. - No specimens collected. Recommendation: - Discharge patient to home. - Resume previous diet. - Continue present medications. - Repeat colonoscopy in 10 years for screening purposes. Procedure Code(s): --- Professional --- G0121, PT, Colorectal cancer screening; colonoscopy on individual not meeting criteria for high risk Diagnosis Code(s): --- Professional --- Z12.11, Encounter for screening for malignant neoplasm of colon CPT copyright 2021 [employer]. All rights reserved. The codes documented in this report are preliminary and upon assistant winemaker review may be revised to meet current compliance requirements. MD Chloe Wolfe MD 08/30/2023 9:24:14 AM This report has been signed electronically. Number of Addenda: 0 Note Initiated On: 08/30/2023 8:48 AM
--- NOTE | 2023-08-30 09:24 | OP.CCLET_ITS ---
08/30/2023 Cristal Potts [address] [id number] Re : Colonoscopy procedure for Suzanna Snowdenconnie Dear Dr. Potts This procedure was performed on Wednesday, August 30, 2023. My impressions and recommendations are as follows: Impressions : - The entire examined colon is normal on direct and retroflexion views. - No specimens collected. Recommendations : - Discharge patient to home. - Resume previous diet. - Continue present medications. - Repeat colonoscopy in 10 years for screening purposes. My findings are described in the full procedure note, which is enclosed. If I can be of further assistance, please feel free to contact me at Doctor phone number(s): , Work: . Sincerely, MD Chloe Wolfe MD 08/30/2023 9:24:14 AM This report has been signed electronically.
--- NOTE | 2023-08-30 09:47 | SUR.PHASEI ---
PT SAT UP. DENIED DIZZINESS, LIGHTHEADEDNESS
== END 2023-08-30 10:32 | disposition home or self-care (01) ==
LOC: EN 07:18 → AC 07:19
PROVIDERS: PCP Internal Medicine; Referring Provider Internal Medicine; Visit Provider Surgery
PROC: 0DJD8ZZ Inspection of Lower Intestinal Tract, Via Natural or Artificial Opening Endoscopic (ICD-10-PCS; CPT 45378; principal; 2023-08-30 08:25)
DX: Z12.11 Encounter for screening for malignant neoplasm of colon (principal); F41.9 Anxiety disorder, unspecified; M19.90 Unspecified osteoarthritis, unspecified site; Z80.0 Family history of malignant neoplasm of digestive organs; Z80.52 Family history of malignant neoplasm of bladder; Z80.42 Family history of malignant neoplasm of prostate; Z78.0 Asymptomatic menopausal state; Z79.899 Other long term (current) drug therapy
CPT/HCPCS: G0121; J7120; J2405

== ENCOUNTER → 2024-06-15 | Outpatient (CLI) | payer MEDICARE, OTHER, SELFPAY ==
--- NOTE | 2024-06-15 14:58 | BI_ITS ---
MAMMOGRAPHY - BILATERAL SCREENING REASON FOR EXAM: Female, 68 years old. Routine annual screening examination. PERTINENT HISTORY: Non-contributory. TECHNIQUE: Digital bilateral breast dat (3D mammographic acquisition) in the CC and MLO projections. 2-D mediolateral oblique (MLO) and craniocaudad (CC) views of both breasts were obtained. CAD: Full Field Digital Mammography with Computer Added Detection was performed. COMPARISON: Comparison is made with prior study dated June 06, 2023 and May 28, 2022. FINDINGS: Breast Composition: The breasts are heterogeneously dense, which may obscure small masses. There are no dominant masses or suspicious calcifications. No other significant abnormalities are identified. There has been no significant change since the prior study. BI/SCRN MAMM (CAD)W/DAT BILAT IMPRESSION: Stable bilateral screening mammogram. Yearly follow-up mammogram recommended. (A) ASSESSMENT CATEGORY: BIRADS Category 1: Negative. A letter regarding these results will be sent to the patient by the facility within 30 days. Approximately 10% of breast cancers are not detected by mammography. A normal mammogram should not delay biopsy of a clinically suspicious abnormality. [id number] Electronically Signed: Carson Garcia MD at 15:49 EDT ,
== END | disposition home or self-care (01) ==
LOC: OPBI 14:58
PROVIDERS: PCP Internal Medicine; Referring Provider Nurse Practitioner Women's Health; Visit Provider Nurse Practitioner Women's Health
DX: Z12.31 Encounter for screening mammogram for malignant neoplasm of breast (principal)
CPT/HCPCS: 77063; 77067

== ENCOUNTER → 2025-08-26 | Outpatient (CLI) | payer MEDICARE, OTHER, SELFPAY ==
--- NOTE | 2025-08-26 10:30 | BI_ITS ---
EXAM: SCRN MAMM (CAD)W/DAT BILAT DATE: 08/26/2025 CLINICAL HISTORY: F, Age 69 y/o , SCREENING FOR BREAST CANCER TECHNIQUE: Procedure Code: [id number] Modality: MG Procedure: SCRN MAMM (CAD)W/DAT BILAT COMPARISON: Prior exam(s) were compared FINDINGS: TISSUE DENSITY: The breasts are heterogeneously dense, which may obscure small masses. Bilateral Breast Mammographic Findings: No suspicious masses, calcifications or other abnormalities are identified. BI/SCRN MAMM (CAD)W/DAT BILAT IMPRESSION: No mammographic evidence of malignancy in either breast. OVERALL FINAL ASSESSMENT BI-RADS 1: NEGATIVE. RECOMMENDATION: Routine annual follow-up in 1 Year Additional Recommendation none A letter with findings and recommendations will be mailed to the patient. Reading Location: [id number]
== END | disposition home or self-care (01) ==
LOC: OPBI 10:33
PROVIDERS: PCP Internal Medicine; Referring Provider Nurse Practitioner Women's Health; Visit Provider Nurse Practitioner Women's Health
DX: Z12.31 Encounter for screening mammogram for malignant neoplasm of breast (principal)
CPT/HCPCS: 77063; 77067